=== PATIENT | female | born 1985 | race Two or more races ===

== ENCOUNTER 2022-09-02 16:04 | Emergency (ER) | payer OTHER, SELFPAY ==
--- NOTE | ~2022-09-02 | US_ITS ---
EXAMINATION: ULTRASOUND OB LIMITED CLINICAL INFORMATION: 23 weeks gestation. Back pain COMPARISON: None. TECHNIQUE: Sonographic evaluation of the gravid uterus is performed transabdominally. To better visualize the ovaries, endovaginal scanning was performed. FINDINGS: There is a single live intrauterine in breech position with an estimated gestational age based on femur length of 24 weeks, 1 day with a range of 2 weeks 1 day. This corresponds to an estimated date of delivery of 12/22/2022. heart rate demonstrated at 149 bpm. The placenta is posterior in position, grade 2, and appears to be free of the cervical os. The right ovary appears normal, measuring 2.1 x 1.8 x 1.7 cm The left ovary appears normal, measuring 2.8 x 1.2 x 1.9 cm. US/US OB limited IMPRESSION: Single live intrauterine with PRESTON 12/22/2022 as detailed in the comments. No sign of complication.
[2022-09-02 16:45] VITALS: BP 103/61; PULSE 84; RESP 16; TEMP 36.3; O2SAT 98; BMI 26.2
--- NOTE | 2022-09-02 16:46 | ED.PREGNANCY ---
HPI - General Chief complaint: General Medical <REBECA Corado - Last Filed: 09/02/22 16:53> Stated complaint: Abdominal pain <REBECA Corado - Last Filed: 09/02/22 16:53> Time Seen by Provider: 09/02/22 22:01 <REBECA Corado - Last Filed: 09/02/22 16:53> Related Data Home medications: Previous Rx's Medication Instructions Recorded acetaminophen 500 mg tablet 500 mg PO Q6H PRN pain #30 tabs 09/02/22 ferrous sulfate 325 mg (65 mg 325 mg PO DAILY #90 tabs 09/02/22 iron) tablet <REBECA Corado - Last Filed: 09/02/22 16:53> Allergies/Adverse reactions: Allergies Allergy/AdvReac Type Severity Reaction Status Date / Time No Known Allergies Allergy Verified 09/02/22 16:46 <REBECA Corado - Last Filed: 09/02/22 16:53> PENDING SALE TO [facility] Past Medical History Medical History: Medical History delivery delivered <REBECA Corado - Last Filed: 09/02/22 16:53> Surgical History: Surgical History H/O rhinoplasty <REBECA Corado - Last Filed: 09/02/22 16:53> Social History Social History: Social History Alcohol intake: never Smoked in Last 30 Days: No Use of substances other than those prescribed or required for medical reasons: No Advance Directives: No Advance Directives Information Provided: No Patient : Yes <REBECA Corado - Last Filed: 09/02/22 16:53> Physical Exam Vital Signs: Vital Signs: Last Vital Signs Temp 97.5 F 09/02/22 22:02 Pulse 83 09/02/22 22:02 Resp 17 09/02/22 22:02 BP 102/60 09/02/22 22:02 Pulse Ox 99 09/02/22 22:02 O2 Del Method Room Air 09/02/22 22:02 BMI result Body Mass Index 26.2 <REBECA Corado - Last Filed: 09/02/22 16:53> Vital Signs: Last Vital Signs Temp 97.5 F 09/02/22 22:02 Pulse 83 09/02/22 22:02 Resp 17 09/02/22 22:02 BP 102/60 09/02/22 22:02 Pulse Ox 99 09/02/22 22:02 O2 Del Method Room Air 09/02/22 22:02 BMI result Body Mass Index 26.2 <Domonique Bae MD - Last Filed: 09/02/22 22:44> Course Course Course Narrative: RME: 36yo F @23 weeks gestation c/o low back pain and nausea x 1 mos. Recently moved here from the [place], was evaluated at [facility] in beginning of month after [place] the [place] for similar sx and found that fetus has low HR 115 on bedside US, & patient has not yet established OBGYN care. Labs, UA, US ordered Full HPI, ROS and PE to be performed by primary ED provider. <REBECA Corado - Last Filed: 09/02/22 16:53> Medical Decision Making Lab Data Result Diagrams: 09/02/22 20:00 09/02/22 20:00 <REBECA Corado - Last Filed: 09/02/22 16:53> Labs: Lab Results 09/02/22 09/02/22 09/02/22 Range/Units 20:00 20:00 20:00 WBC 8.8 (4.8-10.8) X10*3/uL RBC 3.87 L (4.20-5.50) X10*6/uL Hgb 11.2 L (12.0-16.0) g/dl Hct 34.2 L (37.0-47.0) % MCV 88.4 (80.0-98.0) fL MCH 28.9 (27.0-33.0) pg MCHC 32.7 (31.0-35.0) g/dl RDW 14.0 (11.0-16.0) % Plt Count 237 (160-400) X10*3/uL MPV 8.8 L (9.4-12.3) fL Immature Gran % (Auto) 0.9 H (0.0-0.4) % Neut % (Auto) 62.9 (45-73) % Lymph % (Auto) 25.5 (20-40) % [place] % (Auto) 4.8 (2-11) % Eos % (Auto) 5.6 H (0-4) % Baso % (Auto) 0.3 (0-2) % Lymph # (Auto) 2.2 (1.2-4.9) X10*3/uL [place] # (Auto) 0.4 (0.1-1.2) X10*3/uL Eos # (Auto) 0.5 H (0.0-0.4) X10*3/uL Baso # (Auto) 0.0 (0.0-0.2) X10*3/uL Abs Immat Gran (auto) 0.08 H (0.00-0.03) X10*3/uL Absolute Neuts (auto) 5.5 (2.0-8.3) x10*3/uL Absolute Nucleated RBC 0.000 (0.0-0.012) X10*3/uL Nucleated RBC % (auto) 0.0 (0.0-0.2) /100WBC Sodium 136 (135-145) mmol/L Potassium 3.9 (3.3-5.1) mmol/L Chloride 107 (96-108) mmol/L Carbon Dioxide 21 L (22-29) mmol/L Anion Gap 12 (12-20) BUN 7 L (9-16) mg/dL Creatinine 0.63 (0.5-1.4) mg/dL Estim Creat Clear Calc 125.3 Estimated GFR > 60 Random Glucose 104 (60-115) mg/dL Calcium 8.7 (8.4-10.2) mg/dL Total Bilirubin 0.3 (0.0-1.0) mg/dL Direct Bilirubin 0.1 (0.0-0.5) mg/dL AST 17 (5-31) U/L ALT 14 (0-31) U/L Alkaline Phosphatase 61 (39-117) U/L Total Protein 6.2 L (6.5-8.0) g/dL Albumin 3.4 L (3.5-5.0) g/dL Lipase 25 (8-78) U/L Beta HCG, Quant 32122 mIU/mL Urine Color Yellow Urine Appearance Clear Urine pH 6.0 (5.0-9.0) Ur Specific [place] 1.020 (1.005-1.025) Urine Protein Negative (Neg-Trace) mg/dL Urine Glucose (UA) Negative (Negative) mg/dL Urine Ketones Negative (Negative) mg/dL Urine Blood Negative (Negative) Urine Nitrite Negative (Negative) Ur Leukocyte Esterase Negative (Negative) <REBECA Corado - Last Filed: 09/02/22 16:53> Lab Results 09/02/22 09/02/22 09/02/22 Range/Units 20:00 20:00 20:00 WBC 8.8 (4.8-10.8) X10*3/uL RBC 3.87 L (4.20-5.50) X10*6/uL Hgb 11.2 L (12.0-16.0) g/dl Hct 34.2 L (37.0-47.0) % MCV 88.4 (80.0-98.0) fL MCH 28.9 (27.0-33.0) pg MCHC 32.7 (31.0-35.0) g/dl RDW 14.0 (11.0-16.0) % Plt Count 237 (160-400) X10*3/uL MPV 8.8 L (9.4-12.3) fL Immature Gran % (Auto) 0.9 H (0.0-0.4) % Neut % (Auto) 62.9 (45-73) % Lymph % (Auto) 25.5 (20-40) % [place] % (Auto) 4.8 (2-11) % Eos % (Auto) 5.6 H (0-4) % Baso % (Auto) 0.3 (0-2) % Lymph # (Auto) 2.2 (1.2-4.9) X10*3/uL [place] # (Auto) 0.4 (0.1-1.2) X10*3/uL Eos # (Auto) 0.5 H (0.0-0.4) X10*3/uL Baso # (Auto) 0.0 (0.0-0.2) X10*3/uL Abs Immat Gran (auto) 0.08 H (0.00-0.03) X10*3/uL Absolute Neuts (auto) 5.5 (2.0-8.3) x10*3/uL Absolute Nucleated RBC 0.000 (0.0-0.012) X10*3/uL Nucleated RBC % (auto) 0.0 (0.0-0.2) /100WBC Sodium 136 (135-145) mmol/L Potassium 3.9 (3.3-5.1) mmol/L Chloride 107 (96-108) mmol/L Carbon Dioxide 21 L (22-29) mmol/L Anion Gap 12 (12-20) BUN 7 L (9-16) mg/dL Creatinine 0.63 (0.5-1.4) mg/dL Estim Creat Clear Calc 125.3 Estimated GFR > 60 Random Glucose 104 (60-115) mg/dL Calcium 8.7 (8.4-10.2) mg/dL Total Bilirubin 0.3 (0.0-1.0) mg/dL Direct Bilirubin 0.1 (0.0-0.5) mg/dL AST 17 (5-31) U/L ALT 14 (0-31) U/L Alkaline Phosphatase 61 (39-117) U/L Total Protein 6.2 L (6.5-8.0) g/dL Albumin 3.4 L (3.5-5.0) g/dL Lipase 25 (8-78) U/L Beta HCG, Quant 05549 mIU/mL Urine Color Yellow Urine Appearance Clear Urine pH 6.0 (5.0-9.0) Ur Specific [place] 1.020 (1.005-1.025) Urine Protein Negative (Neg-Trace) mg/dL Urine Glucose (UA) Negative (Negative) mg/dL Urine Ketones Negative (Negative) mg/dL Urine Blood Negative (Negative) Urine Nitrite Negative (Negative) Ur Leukocyte Esterase Negative (Negative) <Domonique Bae MD - Last Filed: 09/02/22 22:44> Independent Interpretation I performed an independent interpretation of an: Ultrasound (My interpretation of ultrasound, intrauterine ) <Domonique Bae MD - Last Filed: 09/02/22 22:44> Discharge Plan Discharge Clinical Impression: Lumbar strain <REBECA Corado - Last Filed: 09/02/22 16:53> Patient Disposition: Home, Self-Care <REBECA Corado - Last Filed: 09/02/22 16:53> Instructions: Back Pain (ED) <REBECA Corado - Last Filed: 09/02/22 16:53> Additional Instructions: Please follow-up with your primary care physician tomorrow. If you have any worsening or new symptoms, please return to the emergency room or call 911 <REBECA Corado - Last Filed: 09/02/22 16:53> Prescriptions: New ferrous sulfate 325 mg (65 mg iron) tablet 325 mg PO DAILY Qty: 90 0RF acetaminophen 500 mg tablet 500 mg PO Q6H PRN (Reason: pain) Qty: 30 0RF <REBECA Corado - Last Filed: 09/02/22 16:53> Referrals: Collin Ng MD [Physician] - 10/03/22 <REBECA Corado - Last Filed: 09/02/22 16:53>
[2022-09-02 20:05] LABS: MANUAL DIFF FLAG NO
[2022-09-02 20:07] LABS: Appearance Urine Clear; Color Urine Yellow; Glucose Urine UA Negative (Negative); Leukocyte Esterase Urine Negative (Negative); Nitrite Urine Negative (Negative); Urine Blood Negative (Negative); Urine Ketones Negative (Negative); Urine Protein Negative (Neg-Trace)
[2022-09-02 20:11] LABS: Basophils Percent Auto 0.3 % (0-2); Eosinophils Absolute Auto 0.5 X10*3/uL (0.0-0.4); Eosinophils Percent Auto 5.6 % (0-4); Hematocrit 34.2 % (37.0-47.0); Hemoglobin 11.2 g/dl (12.0-16.0); Imm Gran Abs Auto 0.08 X10*3/uL (0.00-0.03); Imm Gran Pct Auto 0.9 % (0.0-0.4); Lymphocytes Absolute Auto 2.2 X10*3/uL (1.2-4.9); Lymphocytes Percent Auto 25.5 % (20-40); Mean Corpuscular HGB Conc 32.7 g/dl (31.0-35.0); Mean Corpuscular Hemoglobin 28.9 pg (27.0-33.0); Mean Corpuscular Volume 88.4 fL (80.0-98.0); Mean Platelet Volume 8.8 fL (9.4-12.3); Monocytes Absolute Auto 0.4 X10*3/uL (0.1-1.2); Monocytes Percent Auto 4.8 % (2-11); Neutrophils Absolute Auto 5.5 x10*3/uL (2.0-8.3); Neutrophils Percent Auto 62.9 % (45-73); Platelet Count 237 X10*3/uL (160-400); Red Blood Count 3.87 X10*6/uL (4.20-5.50); White Blood Count 8.8 X10*3/uL (4.8-10.8)
[2022-09-02 20:26] LABS: Alanine Aminotransferase 14 U/L (0-31); Albumin Level 3.4 g/dL (3.5-5.0); Alkaline Phosphatase 61 U/L (39-117); Anion Gap 12 (12-20); Aspartate Amino Transferase 17 U/L (5-31); Bilirubin Direct 0.1 mg/dL (0.0-0.5); Bilirubin Total 0.3 mg/dL (0.0-1.0); Blood Urea Nitrogen 7 mg/dL (9-16); Calcium 8.7 mg/dL (8.4-10.2); Carbon Dioxide 21 mmol/L (22-29); Chloride 107 mmol/L (96-108); Creatinine Clr Calc Pharmacy 125.3; Estimated Glomerular Filt Rate > 60; Glucose Random 104 mg/dL (60-115); Lipase 25 U/L (8-78); Potassium 3.9 mmol/L (3.3-5.1); Sodium 136 mmol/L (135-145); Total Protein 6.2 g/dL (6.5-8.0)
[2022-09-02 20:52] LABS: HCG Quantitative 18683 mIU/mL
[2022-09-02 20:56] VITALS: BP 96/54; PULSE 97; RESP 16; TEMP 36.7; O2SAT 98
--- NOTE | 2022-09-02 20:58 | MHC.EDTECH ---
this pct assumed care of pt at 2030 ,pt vitals sign taken ,pt resting in bed .
[2022-09-02 22:02] VITALS: BP 102/60; PULSE 83; RESP 17; TEMP 36.4; O2SAT 99
--- NOTE | 2022-09-02 22:32 | ED_ITS ---
HPI - General Chief complaint: General Medical Stated complaint: Abdominal pain Time Seen by Provider: 09/02/22 22:01 Source: patient Mode of arrival: ambulatory Limitations: no limitations History of Present Illness HPI Narrative: Patient comes to the emergency room complaining of lower back pain for a month. Patient states that she is a at approximately 25 weeks of gestational age. Patient moved from [place] 1 month ago, patient had to carry very heavy stuff, and shortly after she developed the lower back pain. Patient denies any abdominal pain, no contractions, vaginal bleeding or fluid leakage. Patient denies any UTI symptoms. Patient states that over the last month, the back pain has g radually been improving. Related Data Previous Rx's Medication Instructions Recorded acetaminophen 500 mg tablet 500 mg PO Q6H PRN pain #30 tabs 09/02/22 ferrous sulfate 325 mg (65 mg 325 mg PO DAILY #90 tabs 09/02/22 iron) tablet Allergies Allergy/AdvReac Type Severity Reaction Status Date / Time No Known Allergies Allergy Verified 09/02/22 16:46 Review of Systems Review of Systems: Constitutional : No Weight loss, No Fever, No Chills, No Night Sweats, No Fatigue, No Malaise ENT/Mouth : No Hearing loss, No Ear Pain, No Nasal Congestion, No Sinus Pain, No Hoarseness, No sore throat, No Rhinorrhea, No Swallowing Difficulty Eyes: No Eye Pain, No Swelling, No Redness, No Foreign Body, No Discharge, No Vision Changes Cardiovascular : No Chest Pain, No SOB, No Dyspnea on Exertion, No Orthopnea, No Edema, No Palpitations Respiratory : No Cough, No Sputum, No Wheezing, No Smoke Exposure, No Dyspnea Gastrointestinal : No Nausea, No Vomiting, No Diarrhea, No Constipation, No abdominal Pain, No Hematochezia, No Melena Genitourinary : no irregular bleeding, No Dysuria, No Urinary Frequency, No [place], No Urinary Incontinence, No Urgency, No Flank Pain, No Urinary Flow Changes, No Hesitancy Musculoskeletal : Complaining of lower back pain bilaterally for a month, No joint pain, No Myalgias, No Joint Swelling Skin : No Skin Lesions, No rash Neuro : No Weakness, No Numbness, No Paresthesias, No Loss of Consciousness, No Dizziness, No Headache Psych : No Anxiety/Panic, No Depression, No SI/HI/AH/VH, No Social Issues, Heme/Lymph: No Bruising, No Bleeding,No Lymphadenopathy Endocrine : No Polyuria, No Polydipsia, No Temperature Intolerance PMF Past Medical History Medical History delivery delivered Surgical History H/O rhinoplasty Social History Social History Alcohol intake: never Smoked in Last 30 Days: No Use of substances other than those prescribed or required for medical reasons: No Advance Directives: No Advance Directives Information Provided: No Patient : Yes Physical Exam Vital Signs: Vital Signs: Last Vital Signs Temp 97.5 F 09/02/22 22:02 Pulse 83 09/02/22 22:02 Resp 17 09/02/22 22:02 BP 102/60 09/02/22 22:02 Pulse Ox 99 09/02/22 22:02 O2 Del Method Room Air 09/02/22 22:02 BMI result Body Mass Index 26.2 Const: Other: Appearance: Alert. Oriented X3. No acute distress. Eyes: Pupils equal, round and reactive to light. ENT: Pharynx normal. Neck: Normal inspection. Neck supple. No lymph nodes noted. No crepitus CVS: Normal heart rate and rhythm. Pulses normal. Normal S1 and S2 Respiratory: No respiratory distress. Breath sounds normal. No Wheezing. No rales Abdomen: Soft and nontender. Gravid uterus palpated Skin: Skin warm and dry. Normal skin color. Normal skin turgor. Extremities: No lower extremity edema. No Lacerations. No Rash Neuro: Oriented X 3. No motor deficit. No sensory deficit. Moving all extremities. No slurred speech. CN 2 through 12 grossly intact Psych: calm, cooperative, normal affect Medical Decision Making Medical Decision Making MDM Narrative: -I discussed the labs with the patient, she is mildly anemic, patient is already taking vitamins, we will add iron. Discussed with the patient that he can cause constipation. -urinalysis is negative for UTI -ultrasound shows a single live intrauterine , heart rate 149 beats per minute -patient will follow up with OB Gyne Lab Data [facility] Lab Attestation statement: I reviewed the patient's lab results. 09/02/22 20:00 09/02/22 20:00 Labs: Lab Results 09/02/22 09/02/22 09/02/22 Range/Units 20:00 20:00 20:00 WBC 8.8 (4.8-10.8) X10*3/uL RBC 3.87 L (4.20-5.50) X10*6/uL Hgb 11.2 L (12.0-16.0) g/dl Hct 34.2 L (37.0-47.0) % MCV 88.4 (80.0-98.0) fL MCH 28.9 (27.0-33.0) pg MCHC 32.7 (31.0-35.0) g/dl RDW 14.0 (11.0-16.0) % Plt Count 237 (160-400) X10*3/uL MPV 8.8 L (9.4-12.3) fL Immature Gran % (Auto) 0.9 H (0.0-0.4) % Neut % (Auto) 62.9 (45-73) % Lymph % (Auto) 25.5 (20-40) % [place] % (Auto) 4.8 (2-11) % Eos % (Auto) 5.6 H (0-4) % Baso % (Auto) 0.3 (0-2) % Lymph # (Auto) 2.2 (1.2-4.9) X10*3/uL [place] # (Auto) 0.4 (0.1-1.2) X10*3/uL Eos # (Auto) 0.5 H (0.0-0.4) X10*3/uL Baso # (Auto) 0.0 (0.0-0.2) X10*3/uL Abs Immat Gran (auto) 0.08 H (0.00-0.03) X10*3/uL Absolute Neuts (auto) 5.5 (2.0-8.3) x10*3/uL Absolute Nucleated RBC 0.000 (0.0-0.012) X10*3/uL Nucleated RBC % (auto) 0.0 (0.0-0.2) /100WBC Sodium 136 (135-145) mmol/L Potassium 3.9 (3.3-5.1) mmol/L Chloride 107 (96-108) mmol/L Carbon Dioxide 21 L (22-29) mmol/L Anion Gap 12 (12-20) BUN 7 L (9-16) mg/dL Creatinine 0.63 (0.5-1.4) mg/dL Estim Creat Clear Calc 125.3 Estimated GFR > 60 Random Glucose 104 (60-115) mg/dL Calcium 8.7 (8.4-10.2) mg/dL Total Bilirubin 0.3 (0.0-1.0) mg/dL Direct Bilirubin 0.1 (0.0-0.5) mg/dL AST 17 (5-31) U/L ALT 14 (0-31) U/L Alkaline Phosphatase 61 (39-117) U/L Total Protein 6.2 L (6.5-8.0) g/dL Albumin 3.4 L (3.5-5.0) g/dL Lipase 25 (8-78) U/L Beta HCG, Quant 22344 mIU/mL Urine Color Yellow Urine Appearance Clear Urine pH 6.0 (5.0-9.0) Ur Specific [place] 1.020 (1.005-1.025) Urine Protein Negative (Neg-Trace) mg/dL Urine Glucose (UA) Negative (Negative) mg/dL Urine Ketones Negative (Negative) mg/dL Urine Blood Negative (Negative) Urine Nitrite Negative (Negative) Ur Leukocyte Esterase Negative (Negative) Radiology Impression Discussion of test interpretation with radiology: I have reviewed the radiologist's reading. Radiologist Impression: FINDINGS: There is a single live intrauterine in breech position with an estimated gestational age based on femur length of 24 weeks, 1 day with a range of 2 weeks 1 day. This corresponds to an estimated date of delivery of 12/22/2022. heart rate demonstrated at 149 bpm. The placenta is posterior in position, grade 2, and appears to be free of the cervical os. The right ovary appears normal, measuring 2.1 x 1.8 x 1.7 cm The left ovary appears normal, measuring 2.8 x 1.2 x 1.9 cm. US/US OB limited IMPRESSION: Single live intrauterine with PRESTON 12/22/2022 as detailed in the comments. No sign of complication. Discharge Plan Discharge Clinical Impression: Lumbar strain Patient Disposition: Home, Self-Care Instructions: Back Pain (ED) Additional Instructions: Please follow-up with your primary care physician tomorrow. If you have any worsening or new symptoms, please return to the emergency room or call 911 Prescriptions: New ferrous sulfate 325 mg (65 mg iron) tablet 325 mg PO DAILY Qty: 90 0RF acetaminophen 500 mg tablet 500 mg PO Q6H PRN (Reason: pain) Qty: 30 0RF Referrals: Collin Ng MD [Physician] - 10/03/22
== END 2022-09-02 22:53 | disposition home or self-care (01) ==
PROVIDERS: Physician Assistant; Emergency Provider Emergency Medicine
DX: O9A.212 Injury, poisoning and certain other consequences of external causes complicating pregnancy, second trimester (principal); S39.012A Strain of muscle, fascia and tendon of lower back, initial encounter; X50.0XXA Overexertion from strenuous movement or load, initial encounter; Y93.E6 Activity, residential relocation; Y92.039 Unspecified place in apartment as the place of occurrence of the external cause; Y99.9 Unspecified external cause status; Z3A.25 25 weeks gestation of pregnancy
CPT/HCPCS: 36415; 76815; 80048; 80076; 81003; 83690; 84702; 85025; 99284